=== PATIENT | female | born 1985 | race Caucasian/White ===

== ENCOUNTER 2020-01-17 05:18 | Emergency (ER) | payer OTHER ==
[~2020-01-17] VITALS: Ht 170.2 cm; Wt 109.8 kg
[2020-01-17 05:22] VITALS: Ht 170.2 cm; Wt 109.8 kg
[2020-01-17 05:55] VITALS: BP 130/82
== END 2020-01-17 05:55 | disposition other institution (70) ==
LOC: ED 05:18
DX: Z02.89 Encounter for other administrative examinations (principal)

== ENCOUNTER 2021-01-25 14:19 | Emergency (ER) | payer MEDICAID ==
[~2021-01-25] VITALS: Ht 170.2 cm; Wt 107.0 kg
[2021-01-25 14:32] VITALS: BP 158/104; Ht 170.2 cm; Wt 107.0 kg
[2021-01-25] MEDS ORDERED: TRAMADOL HCL50 MG PO (16:27)
== END 2021-01-25 16:31 | disposition home or self-care (01) ==
LOC: ED 14:19
DX: M25.561 Pain in right knee (principal)